=== PATIENT | female | born 1990 | race Caucasian/White ===

== ENCOUNTER 2021-03-31 18:43 | Emergency (ER) | payer OTHER, SELFPAY ==
--- NOTE | ~2021-03-31 | XR_ITS ---
EXAMINATION: XR lumbar spine min 4V DATE: 03/31/2021 20:46 INDICATION: Slipped disc. Right sided low back pain. TECHNIQUE: 5 views of lumbar spine were obtained. COMPARISON: None. FINDINGS: There is 18 degrees dextroscoliosis of thoracolumbar spine. Vertebral body heights and inte rvertebral disc heights are normal. There is multilevel mild facet joint osteoarthritis. IMPRESSION: 1. Thoracolumbar dextroscoliosis. 2. Mild lumbar facet joint osteoarthritis. Reviewed, dictated and finalized at location A.
[2021-03-31 19:46] VITALS: BP 120/84; PULSE 88; RESP 14; TEMP 37.2; O2SAT 100
[2021-03-31 20:10] VITALS: BP 120/84; PULSE 88; RESP 14; TEMP 37.2; O2SAT 98
--- NOTE | 2021-03-31 21:41 | ED.BACK ---
HPI - Back Pain/Injury General Chief Complaint: Back Pain/Injury Stated Complaint: back pain Time Seen by Provider: 03/31/21 20:21 Source: patient Limitations: no limitations History of Present Illness HPI Narrative: 30-year-old with no major medical problems here with complaints of low back pain for past few months. She denies any trauma, lifting injuries. She states that it started early summer and it is progressively getting worse. Patient states the pain is now radiating into her leg. She denies any bladder or bowel incontinence. She denies any tingling numbness. MD elicited complaint: back pain Onset (ago): week(s) Timing: constant Severity: moderate Quality: dull Location: lumbar spine Radiation: left upper leg Exacerbating factors: movement Relieving factors: none Associated symptoms: denies other symptoms Related Data Allergies Allergy/AdvReac Type Severity Reaction Status Date / Time acetaminophen [From Vicodin] AdvReac Hallucinati Verified 03/31/21 20:14 ng hydrocodone [From Vicodin] AdvReac Hallucinati Verified 03/31/21 20:14 ng Review of Systems Review of Systems: All systems reviewed & are unremarkable except as noted in HPI and below Constitutional: Constitutional: Reports no additional constitutional complaints Eyes: Eyes: Reports no additional eye complaints ENT: Reports system reviewed and no additional complaints, except as documented Cardiovascular: Cardiovascular: Reports no additional cardiovascular complaints Respiratory: Respiratory: Reports no additional respiratory complaints Gastrointestinal: Gastrointestinal: Reports no additional gastrointestinal complaints Genitourinary: Genitourinary: Reports no additional female genitourinary complaints Musculoskeletal: Musculoskeletal: Reports as per HPI Neurologic: Reports system reviewed and no additional complaints, except as documented Psychiatric: Psychiatric: Reports no additional psychiatric complaints Exam Narrative: GENERAL: Well-appearing, well-nourished, and in no acute distress. HEAD: Normocephalic, atraumatic. EYES: PERRLA and EOMI. NECK: Supple. CHEST: Clear to auscultation. No respiratory distress. HEART: Regular rate and rhythm. No murmur heard. Normal peripheral pulses. ABDOMEN: Soft, nontender, nondistended, normal active bowel sounds. EXTREMITIES: Normal range of motion. No edema. Examination of the lower back she has pain around L4-L5 SLR was positive on the left 30 degrees. She has good power and tone in both lower extremities. SKIN: Warm, dry, no rash. NEURO: No focal deficits. Alert and oriented x3. PSYCH: Normal mood and affect. Course Vital Signs Vital signs: Vital Signs Temperature 37.2 C 03/31/21 19:46 Pulse Rate 88 03/31/21 19:46 Respiratory Rate 14 03/31/21 19:46 Blood Pressure 120/84 03/31/21 19:46 Pulse Oximetry 100 03/31/21 19:46 Temperature 37.2 C 03/31/21 20:10 Pulse Rate 88 03/31/21 20:10 Respiratory Rate 14 03/31/21 20:10 Blood Pressure 120/84 03/31/21 20:10 Pulse Oximetry 98 03/31/21 20:10 MDM - Back Pain/Injury Imaging Data Radiologist's impression: ITS Impressions Lumbar Spine X-Ray 03/31/21 20:47 IMPRESSION: 1. Thoracolumbar dextroscoliosis. 2. Mild lumbar facet joint osteoarthritis. Discharge Plan Discharge Clinical Impression: Low back pain Qualifiers: Chronicity: unspecified Back pain laterality: left Sciatica presence: without sciatica Qualified Code(s): M54.5 - Low back pain Patient Disposition: Home, Self-Care Condition: Stable Instructions: Antibiotic Form, Back Pain (ED) Additional Instructions: Take medications as prescribed, follow with your doctor Prescriptions: New naproxen 500 mg tablet 500 mg PO BID Qty: 14 RF: 0 cyclobenzaprine 5 mg tablet 5 mg PO TID PRN (Reason: muscle spasm) Qty: 20 RF: 0 Follow-up/Referrals: Getachew Barbosa MD [Physician] - PHYSICIAN NOT ON
== END 2021-03-31 22:17 | disposition home or self-care (01) ==
PROVIDERS: Emergency Provider Family Medicine
DX: M54.5 Low back pain (principal)
CPT/HCPCS: 72110; 99283